=== PATIENT | female | born 1995 | race Caucasian/White ===

== ENCOUNTER → 2017-06-20 | Outpatient (CLI) | payer MEDICAID ==
[2017-06-20 19:00] LABS: BASO % 0.4 % (0.0-1.0); EOS # 0.1 K/mm3 (0.0-0.50); LARGE UNSTAINED CELL # 0.1 K/mm3 (0.0-0.4); LYMPH # 1.4 K/mm3 (1.5-6.5); LYMPH % 15.2 % (24.0-44.0); MEAN CORPUSCULAR HEMOGLOBIN 31.4 pg (27.0-33.0); MEAN CORPUSCULAR HGB CONC 33.5 g/dl (32.0-36.5); MEAN CORPUSCULAR VOLUME 93.8 fl (80.0-96.0); MONO # 0.5 K/mm3 (0.0-0.8); MONO % 5.3 % (0.0-5.0); NEUTROPHILS # 6.9 K/mm3 (1.8-7.7); NEUTROPHILS % 77.1 % (36.0-66.0); PLATELET COUNT, AUTOMATED 241 k/mm3 (150-450); RED CELL DISTRIBUTION WIDTH 12.6 % (11.5-14.5); WHITE BLOOD COUNT 8.9 K/mm3 (4.0-10.0)
[2017-06-21 09:34] LABS: HBsAg Prenatal NEGATIVE (NEGATIVE)
== END ==
LOC: M SMT 12:08
PROVIDERS: ATTEND Obstetrics & Gynecology
DX: Z34.82 Encounter for supervision of other normal pregnancy, second trimester (principal)

== ENCOUNTER → 2017-06-23 | Outpatient (CLI) | payer MEDICAID ==
--- NOTE | 2017-06-23 16:14 | REP ---
Obstetric ultrasound: There is a single intrauterine gestation. position is variable. There is movement and cardiac activity, the heart rate is 139 beats per minute. The placenta is posterior. There is no placenta previa or abruptio. Placenta demonstrates grade zero maturity. The amniotic fluid volume subjectively is normal. The cervix is 3.6 cm in diameter. By today's ultrasound the gestational age is 20 weeks 2 days with an DIDIER of 11/08/2017. By LMP and gestational age is 20 weeks 1 day. weight is 391 grams (0 pounds, 13 ounces). This is the 74th percentile for 20 weeks 1 day. The following anatomic structures are identified and are unremarkable: Intracranial lateral ventricles, choroid plexus, cerebellum, cisterna magna, cavum septum pellucidum, face, facial profile, lungs, four-chamber heart, cardiac right and left ventricular outflow tracts, diaphragm, stomach, cord insertion, three-vessel cord, bladder and upper lower extremities. Suboptimally demonstrated because of position are the kidneys and the spine. A followup study dedicated to these structures might be considered. Otherwise, there are no anomalies. Signed by Trent Becerra MD 06/23/2017 04:06 P
== END ==
LOC: M SMT 14:48
PROVIDERS: ATTEND Obstetrics & Gynecology
DX: Z34.82 Encounter for supervision of other normal pregnancy, second trimester (principal)

== ENCOUNTER → 2017-08-07 | Outpatient (CLI) | payer MEDICAID, OTHER ==
--- NOTE | 2017-08-07 14:48 | REP ---
OBSTETRIC SONOGRAPHY: HISTORY: Supervision of followup anatomy. Comparison study June 23, 2017. FINDINGS: Scanning through the gravid uterus demonstrates a viable single intrauterine gestation in a cephalic lie. motion is observed and heart rate is recorded at 147 beats per minute. An anterior grade 1 placenta is seen without evidence of previa. Amniotic fluid is subjectively normal. Closed cervical length is measured transabdominally at 6.0 cm. No extrauterine abnormality is observed. There has been appropriate interval growth. No anomaly is seen. The following anatomic structures are identified today and felt to be unremarkable: cranium, choroid plexus, cavum, cerebellum and posterior fossa, lungs, four-chamber heart with left ventricular outflow tract view, diaphragm, left-sided stomach, abdominal wall cord insertion, three-vessel umbilical cord, kidneys and bladder, spine, upper and lower extremities. Biometry Chart: BPD 6.7 cm = 26 weeks 6 days HC 24.3 cm = 26 weeks 3 days AC 22.5 cm = 26 weeks 6 days FL 4.9 cm = 26 weeks, 3 days HL 4.5 cm = 26 weeks 3 days CD 3.2 cm = 27 weeks 2 days HC/AC ratio normal 1.08 Cephalic index normal 0.77. Estimated weight 963 grams, 2 pounds 1 ounce, 43rd percentile for 26 weeks 4 days. IMPRESSION: Viable single intrauterine gestation at 26 weeks 1 day by today's composite sonographic criteria. Expected gestational age estimate based on prior sonography is 26 weeks 4 days. DIDIER by prior sonography November 09, 2017. anatomic survey is felt to be complete in conjunction with the prior study. Signed by Ishaan Mabry MD 08/07/2017 03:55 P
== END ==
LOC: M SMT 13:03
PROVIDERS: ATTEND Obstetrics & Gynecology
DX: Z34.82 Encounter for supervision of other normal pregnancy, second trimester (principal)

== ENCOUNTER → 2017-08-11 | Outpatient (CLI) | payer MEDICAID, OTHER ==
[2017-08-11 13:46] LABS: MEAN CORPUSCULAR HEMOGLOBIN 31.1 pg (27.0-33.0); MEAN CORPUSCULAR HGB CONC 33.5 g/dl (32.0-36.5); RED CELL DISTRIBUTION WIDTH 12.7 % (11.5-14.5); WHITE BLOOD COUNT 10.5 K/mm3 (4.0-10.0)
== END ==
LOC: M SMT 09:45
PROVIDERS: ATTEND Obstetrics & Gynecology
DX: Z34.82 Encounter for supervision of other normal pregnancy, second trimester (principal)

== ENCOUNTER → 2017-08-16 | Outpatient (REF) | payer OTHER | LOC: M LAB REF 11:36 | PROVIDERS: ATTEND Advanced Practice Midwife | DX: Z34.82 Encounter for supervision of other normal pregnancy, second trimester (principal) ==

== ENCOUNTER → 2017-10-16 | Outpatient (REF) | payer OTHER | LOC: M LAB REF 17:09 | PROVIDERS: ATTEND Advanced Practice Midwife | DX: Z34.83 Encounter for supervision of other normal pregnancy, third trimester (principal) ==

== ENCOUNTER 2017-11-07 05:04 | Inpatient (IN) | payer OTHER ==
[~2017-11-07] VITALS: Ht 162.6 cm; Wt 74.8 kg
[2017-11-07] VITALS (34 sets, daily range): BP systolic 97–157; BP diastolic 51–85
[2017-11-07] MEDS ORDERED: PRENTAB9 PO (05:24)
[2017-11-07] MEDS ORDERED: ZANTTAB9 PO (05:25)
[2017-11-07] MEDS ORDERED: BUTORPHANOL 2 MG/ML INJ (J0595) IV ONE (05:45)
[2017-11-07] MEDS ORDERED: PROMETHAZINE INJ 25 MG/ML VIAL (J2550) IV ONE (05:45)
[2017-11-07] MEDS ORDERED: ONDANSETRON 4MG/2ML VIAL (J2405) IV PRN ×3 (05:45→17:15)
--- NOTE | 2017-11-07 06:06 | HPE ---
DATE OF ADMISSION: 11/07/2017 Ирина is a 22-year-old 1 para 0 at 39 and 5/7 weeks gestation with EDC of 11/09/2017 based on last menstrual period and supported by a second trimester ultrasound. She presents to labor and delivery today with report of onset of uncomfortable contractions at approximately midnight that have progressively gotten closer together and more uncomfortable. She reports some scant bloody show. Denies leakage of fluid and the fetus has been active. care was initiated at [facility] in the second trimester. course complicated by late entry to care. OB HISTORY: Prima . OB LABS: Blood type B positive, antibody screen negative, Rubella immune, VDRL nonreactive. Urine culture no growth. Hepatitis B surface antigen negative. HIV negative. Hepatitis B antibody nonreactive. Gonorrhea and chlamydia negative. It was too late for genetic serum screening labs. Gestational diabetic screening normal at 106. Group B Streptococcus (GBS) is negative. PAST MEDICAL HISTORY: Noncontributory. SURGERIES: None. FAMILY HISTORY: Anxiety. SOCIAL HISTORY: The patient is single. She is with supportive persons. The father of baby is at bedside and appeared to be supportive. She is a smoker. Reports smoking about a pack per day. She denies alcohol and drug use during the . She has a history of marijuana use and alcohol use prior to the . She denies any sexually transmitted disease (STD) history and she denies history of abuse, physical, sexual and emotional. ALLERGIES: No known drug allergies. CURRENT MEDICATION: - vitamin - Zantac as needed OBJECTIVE: Temperature 97.6, pulse 87, respirations have not been recorded at this time. Her blood pressure is 131/73. She is alert and oriented times three. She is distressed, crying, vomiting and tense with her contractions. heart rate is 130 with moderate variability, positive accelerations, no decelerations observed. She is kit approximately every 2-4 minutes. Sterile vaginal exam performed by RN: 2 cm dilated, 80% effaced, -1 station, membranes are intact. Abdomen is gravid, cephalic presentation. Estimated weight 7-1/2 pounds. ASSESSMENT: Intrauterine at 39 and 5/7 weeks gestation. heart rate category 1, active labor. PLAN: Admit patient to labor and delivery. Out of bed ad leen. Clear liquid diet. Saline lock. At this time, the patient requests IV pain medication to cope with her labor. Stadol and Phenergan have been ordered. I do anticipate continued labor progress and spontaneous vaginal delivery. Will consider assisted rupture of membranes to augment her labor and IV Pitocin as needed.
[2017-11-07 06:10] LABS: MEAN CORPUSCULAR HEMOGLOBIN 29.1 pg (27.0-33.0); MEAN CORPUSCULAR HGB CONC 33.9 g/dl (32.0-36.5); MEAN CORPUSCULAR VOLUME 85.9 fl (80.0-96.0); PLATELET COUNT, AUTOMATED 182 10^3/uL (150-450); RED CELL DISTRIBUTION WIDTH 13.5 % (11.5-14.5); WHITE BLOOD COUNT 18.8 10^3/uL (4.0-10.0)
[2017-11-07] MEDS ORDERED: OXYTOCIN DRIP 30 UNITS in APPROPRIATE DILUENT 1 EA IV SCH (07:00)
[2017-11-07] MEDS: LR 1,000 ML IV SCH ×3 (07:03→13:10)
[2017-11-07] MEDS ORDERED: FENTANYL 2MCG/ML ROPIVACAINE 0.2% IN 0.9% NACL 200ML IVBAG As Ordered ONE (09:12)
[2017-11-07] MEDS ORDERED: ePHEDrine SULFATE 25 MG/5 ML(5MG/ML) SYRINGE IV PRN (10:45)
[2017-11-07] MEDS ORDERED: LACTATED RINGER'S 1000 ML IV PRN (10:45)
[2017-11-07] MEDS ORDERED: REFRIGERATOR IV KEYS XX PRN (10:45)
[2017-11-07] MEDS ORDERED: EPIDURAL COMMENT XX SCH (10:45)
[2017-11-07] MEDS ORDERED: EPIDURAL/PCA KEYS XX PRN (10:45)
[2017-11-07] MEDS ORDERED: diphenhydrAMINE INJ 50MG/ML VIAL (J1200) IV PRN (10:45)
[2017-11-07] MEDS ORDERED: NALOXONE INJ 0.4 MG/1 ML VIAL (J2310) IV PRN (10:45)
[2017-11-07] MEDS ORDERED: FENTANYL/ROPIVACAINE/NACL BAG 200 ML EPIDURAL SCH (10:45)
[2017-11-07] MEDS ORDERED: FAMOTIDINE 20 MG TAB PO ONE (12:15)
[2017-11-07] MEDS ORDERED: DOCUSATE SODIUM 100 MG CAP PO PRN (17:15)
[2017-11-07] MEDS ORDERED: MEASLES,MUMPS,RUBELLA VACCINE INJ (MMR-II) (90707) SC SCH (17:15)
[2017-11-07] MEDS ORDERED: OXYTOCIN DRIP 30 UNITS in APPROPRIATE DILUENT 1 EA IV ONE (17:15)
[2017-11-07] MEDS ORDERED: ACETAMINOPHEN 500 MG TAB PO PRN (17:15)
[2017-11-07] MEDS ORDERED: METHYLERGONOVINE MALEATE 0.2 MG TAB PO PRN (17:15)
[2017-11-07] MEDS ORDERED: RHOGAM 300 MCG (1500 IU) INJ (J2790) IM SCH (17:15)
[2017-11-07] MEDS ORDERED: DIBUCAINE 1% OINTMENT 30GM TOP PRN (17:15)
--- NOTE | 2017-11-07 19:38 | DN ---
DATE: 11/07/2017 PREDELIVERY DIAGNOSIS: Term , labor. POSTDELIVERY DIAGNOSIS: Delivered. PROCEDURE: Spontaneous vaginal delivery. BLACK OFF WORKER: Dr. Yousuf Hood ANESTHESIA: Epidural. ESTIMATED BLOOD LOSS: 300 mL. FINDINGS: 7 pound 5 ounce or 3320 gram male infant, scores 8 and 9. DELIVERY SUMMARY: After a 10-minute second stage, the patient had spontaneous delivery of a 7 pound 5 ounce male , scores of 8 and 9, under epidural anesthesia. There was no nuchal cord. The shoulders delivered with ease. The infant spontaneously and was handed to the mother. Cord was doubly clamped and cut. The placenta delivered spontaneously and appeared to be intact. She received IV Pitocin immediately after delivery of the placenta. There were no vaginal lacerations present. Sponge counts were correct.
[2017-11-08] MEDS: IBUPROFEN 800 MG TAB PO PRN ×3 (03:59→23:34)
[2017-11-08 05:37] VITALS: BP 107/53
[2017-11-08] MEDS: PRENATAL VITAMINS CHEWABLE TABLET PO SCH (09:43)
[2017-11-08 17:43] VITALS: BP 113/58
[2017-11-09 06:00] VITALS: BP 118/65
[2017-11-09] MEDS: PRENATAL VITAMINS CHEWABLE TABLET PO SCH (08:20)
[2017-11-09] MEDS: IBUPROFEN 800 MG TAB PO PRN (08:21)
[2017-11-09] MEDS ORDERED: ACET50TA PO (09:31)
[2017-11-09] MEDS ORDERED: IBUP-1114 PO (09:32)
== END 2017-11-09 11:58 | disposition home or self-care (01) | DRG 560 ==
LOC: M LDO 05:04 → M LDI 05:31 → M OBS 18:25
PROVIDERS: ADMIT Advanced Practice Midwife; ATTEND Advanced Practice Midwife
PROC: 10E0XZZ Delivery of Products of Conception, External Approach (ICD-10-PCS; principal; 2017-11-07)
DX: O80 Encounter for full-term uncomplicated delivery (principal); Z37.0 Single live birth; Z3A.39 39 weeks gestation of pregnancy

== ENCOUNTER → 2018-08-31 | Outpatient (CLI) | payer OTHER ==
[2018-08-31 13:49] LABS: BASO # 0.1 10^3/uL (0.0-0.2); BASO % 0.7 % (0.0-1.0); EOS # 0.2 10^3/uL (0.0-0.50); EOS % 1.4 % (0.0-3.0); HEMATOCRIT 42.3 % (36.0-47.0); HEMOGLOBIN 14.6 g/dl (12.0-15.5); IMMATURE GRANULOCYTE % 0.3 % (0-3.0); LYMPH # 2.6 10^3/uL (1.5-6.5); LYMPH % 24.5 % (24.0-44.0); MEAN CORPUSCULAR HGB CONC 34.5 g/dl (32.0-36.5); MEAN CORPUSCULAR VOLUME 86.9 fl (80.0-96.0); MONO # 0.9 10^3/uL (0.0-0.8); MONO % 8.2 % (0.0-5.0); NEUTROPHILS # 6.8 10^3/uL (1.8-7.7); NEUTROPHILS % 64.9 % (36.0-66.0); PLATELET COUNT, AUTOMATED 234 10^3/uL (150-450); RED BLOOD COUNT 4.87 10^6/uL (4.00-5.40); RED CELL DISTRIBUTION WIDTH 12.1 % (11.5-14.5); WHITE BLOOD COUNT 10.5 10^3/uL (4.0-10.0)
[2018-08-31 14:56] LABS: HBsAg Prenatal NEGATIVE (NEGATIVE); HIV 1&2 SCREEN CENTAUR NEGATIVE (NEGATIVE); RUBELLA IgG QUALITATIVE IMMUNE (IMMUNE)
[2018-08-31 14:56] LABS: HEPATITIS C VIRUS ABY INDEX < 0.0 INDEX (<0.8)
[2018-08-31 15:37] LABS: CHLAMYDIA DNA AMPLIFICATION NEGATIVE (NEGATIVE); GC DNA AMPLIFICATION NEGATIVE (NEGATIVE)
== END ==
LOC: M SMT 10:19
DX: Z34.81 Encounter for supervision of other normal pregnancy, first trimester (principal); Z36.89 Encounter for other specified antenatal screening; Z3A.09 9 weeks gestation of pregnancy
CPT/HCPCS: 86762

== ENCOUNTER → 2018-09-28 | Outpatient (CLI) | payer OTHER | LOC: M SMT 12:48 | DX: Z36.89 Encounter for other specified antenatal screening (principal); Z3A.17 17 weeks gestation of pregnancy | CPT/HCPCS: 76811 ==

== ENCOUNTER → 2019-01-04 | Outpatient (CLI) | payer OTHER ==
[~2019-01-04] MED LIST: IBUP-1114 PO; MAPA500T2 PO; PRENTAB9 PO; ZANTTAB9 PO
[2019-01-04 13:16] LABS: BASO % 0.3 % (0.0-1.0); EOS # 0.1 10^3/uL (0.0-0.50); EOS % 1.4 % (0.0-3.0); HEMATOCRIT 36.5 % (36.0-47.0); HEMOGLOBIN 12.3 g/dl (12.0-15.5); LYMPH # 1.8 10^3/uL (1.5-6.5); LYMPH % 21.3 % (24.0-44.0); MEAN CORPUSCULAR HEMOGLOBIN 29.8 pg (27.0-33.0); MEAN CORPUSCULAR HGB CONC 33.7 g/dl (32.0-36.5); MEAN CORPUSCULAR VOLUME 88.4 fl (80.0-96.0); MONO # 0.8 10^3/uL (0.0-0.8); MONO % 9.5 % (0.0-5.0); NEUTROPHILS # 5.8 10^3/uL (1.8-7.7); NEUTROPHILS % 67.2 % (36.0-66.0); PLATELET COUNT, AUTOMATED 205 10^3/uL (150-450); RED BLOOD COUNT 4.13 10^6/uL (4.00-5.40); WHITE BLOOD COUNT 8.6 10^3/uL (4.0-10.0)
== END ==
LOC: M SMT 09:47
PROVIDERS: ATTEND Specialist
DX: Z34.82 Encounter for supervision of other normal pregnancy, second trimester (principal)

== ENCOUNTER → 2019-01-29 | Outpatient (CLI) | payer OTHER ==
[2019-01-29 13:57] LABS: ALBUMIN 2.8 GM/DL (3.2-5.2); BILIRUBIN,DIRECT 0.2 MG/DL (0.0-0.2); BILIRUBIN,TOTAL 0.3 MG/DL (0.2-1.0); TOTAL PROTEIN 6.6 GM/DL (6.4-8.2)
== END ==
LOC: M SMT 11:16
PROVIDERS: ATTEND Specialist
DX: O26.613 Liver and biliary tract disorders in pregnancy, third trimester (principal)

== ENCOUNTER → 2019-02-05 | Outpatient (REF) | payer OTHER ==
[~2019-02-05] MED LIST changes: +ACET-683 PO; +IBUP80TA PO
== END ==
LOC: M LAB REF 13:04
PROVIDERS: ATTEND Specialist
DX: Z34.83 Encounter for supervision of other normal pregnancy, third trimester (principal); Z3A.36 36 weeks gestation of pregnancy; Z36.85 Encounter for antenatal screening for Streptococcus B

== ENCOUNTER 2019-02-09 07:06 | Inpatient (IN) | payer OTHER ==
[~2019-02-09] VITALS: Ht 162.6 cm; Wt 81.1 kg
[2019-02-09] VITALS (15 sets, daily range): BP systolic 97–147; BP diastolic 55–88
[~2019-02-09 07:06] MED LIST changes: -ACET-683 PO; -IBUP80TA PO
[2019-02-09] MEDS ORDERED: LACTATED RINGER'S 1000 ML IV STA (07:24)
[2019-02-09] MEDS ORDERED: miSOPROStol 50 MCG 1/2 TAB (S0191) PO SCH (08:00)
[2019-02-09 08:20] LABS: HEMATOCRIT 35.2 % (36.0-47.0); HEMOGLOBIN 11.7 g/dl (12.0-15.5); MEAN CORPUSCULAR HEMOGLOBIN 28.3 pg (27.0-33.0); MEAN CORPUSCULAR HGB CONC 33.2 g/dl (32.0-36.5); PLATELET COUNT, AUTOMATED 160 10^3/uL (150-450); RED BLOOD COUNT 4.14 10^6/uL (4.00-5.40); WHITE BLOOD COUNT 8.6 10^3/uL (4.0-10.0)
[2019-02-09 08:47] LABS: ALT/SGPT 24 U/L (12-78); BILIRUBIN,TOTAL 0.2 MG/DL (0.2-1.0); GLOMERULAR FILTRATION RATE > 60.0 (>60); LDH LACTATE DEHYDROGENASE 162 U/L (84-246); URIC ACID 3.5 MG/DL (2.6-6.0)
[2019-02-09] MEDS ORDERED: OXYTOCIN DRIP 30 UNITS in APPROPRIATE DILUENT 1 EA IV SCH (12:45)
--- NOTE | 2019-02-09 12:46 | NUR ---
L&D H&P HPI: 23 year old at 37+0 weeks estimated gestation. Expected date of confinement: 03/02/2019. dated by her LMP, consistent with first trimester ultrasound. Presents today for an induction of labor secondary to a diagnosis of cholestasis of . Denies vaginal bleeding, loss of fluid, or uterine contractions. Reports regular movement. course complicated by cholestasis of , tobacco use during . labs: Blood type B+, antibody screen negative, rubella immune, VDRL nonreactive , hepatitis B surface antigen negative, HIV negative, hepatitis C antibody negative, GC/CT negative, aneuploidy/maternal serum screening: Not done, 1 hour glucose challenge test: 61, negative GBS 01/29/2019: AST 28 ALT 92 bile acids 18.7 Vaccinations: Tdap 02/05/2019 Flu vaccine 10/09/2018 Radiology/OB US: no anomalies or placental abnormalities detected. History Past medical history: None Surgical history:. None Medications:. vitamins Allergies: NKDA [employer] history:. No dysplasia/STI/G HSV OB history:. G1, October 2017, 39+0 weeks' , 7 lbs. 5 oz., uncomplicated. Social history: No alcohol or drug use. Tobacco use during Family history: Anxiety Objective Vitals: Normotensive, normal heart rate, afebrile Heart: Regular rate and rhythm. No murmurs, rubs or gallops. Lungs: Clear to auscultation bilaterally. No wheezes, crackles, rales or rhonchi. Abdomen: Uterine fundal height consistent with dates. No guarding or rebound tenderness. Extremities: No clubbing, cyanosis or edema. Normal deep tendon reflexes. Sterile vaginal exam: 1 cm, 50 %effacement, -3 station, cephalic, intact External monitoring: heart rate category 1 Tocodynamometer: contractions occurring intermittently Assessment/Plan 23 year old at 37+0 weeks gestation. Diagnosis: Cholestasis of . Reassuring and maternal status. -Admit to labor and delivery with routine labs and orders -External monitoring and tocodynamometer -Pediatrics and anesthesia consultations as needed. -Start with cervical ripening via misoprostol followed by Cook balloon / Pitocin Dr. Saad Burciaga, DO, FACOG
[2019-02-09] MEDS ORDERED: PROMETHAZINE INJ 25 MG/ML VIAL (J2550) IM ONE (15:30)
[2019-02-09] MEDS ORDERED: BUTORPHANOL 2 MG/ML INJ (J0595) IV ONE (15:30)
[2019-02-09] MEDS ORDERED: PROMETHAZINE INJ 25 MG/ML VIAL (J2550) IV ONE (15:45)
[2019-02-09] MEDS: LR 1,000 ML IV SCH ×2 (17:00→22:40)
--- NOTE | 2019-02-09 19:57 | NUR ---
Labor progress note Subjective: Patient starting to feel more uncomfortable with contractions. Contractions are occurring more frequently. Denies any loss of fluid or vaginal bleeding. No complaints of headache, visual changes, nausea, vomiting, shortness of breath or chest pain. Cook balloon has not spontaneously fallen out of the vagina. Patient has received Stadol and Phenergan IV for pain control. Requesting epidural. Objective: Vitals: Normotensive, normal heart rate, afebrile Sterile vaginal exam: 4-5 cm, 50% effacement, -3 station, cephalic, intact membranes. External monitoring: Category 1 Tocodynamometer:. Contractions every 2-3 minutes, Pitocin at 6 mU/m Assessment / Plan: Latent labor, approaching active phase of labor. Reassuring maternal and status. -Continue with IV Pitocin per protocol. -Repeat sterile vaginal exam in approximately 2-4 hours or sooner as needed -Consider AROM if unchanged Dr. Saad Burciaga D.O., F.A.C.O.G
[2019-02-09] MEDS ORDERED: FENTANYL 2MCG/ML ROPIVACAINE 0.2% IN 0.9% NACL 100ML IVBAG As Ordered ONE (20:02)
[2019-02-09] MEDS ORDERED: FENTANYL/ROPIVACAINE/NACL BAG 100 ML EPIDURAL SCH (20:45)
[2019-02-09] MEDS ORDERED: LACTATED RINGER'S 1000 ML IV PRN (20:45)
[2019-02-09] MEDS ORDERED: ONDANSETRON 4MG/2ML VIAL (J2405) IV PRN (20:45)
[2019-02-09] MEDS ORDERED: ePHEDrine SULFATE 25 MG/5 ML(5MG/ML) SYRINGE IV PRN (20:45)
[2019-02-09] MEDS ORDERED: NALOXONE INJ 0.4 MG/1 ML VIAL (J2310) IV PRN (20:45)
[2019-02-09] MEDS ORDERED: REFRIGERATOR IV KEYS XX PRN (20:45)
[2019-02-09] MEDS ORDERED: diphenhydrAMINE INJ 50MG/ML VIAL (J1200) IV PRN (20:45)
[2019-02-09] MEDS ORDERED: EPIDURAL/PCA KEYS XX PRN (20:45)
[2019-02-09] MEDS ORDERED: EPIDURAL COMMENT XX SCH (20:45)
--- NOTE | 2019-02-09 22:39 | NUR ---
Labor progress note Subjective: Patient comfortable with epidural. Denies any loss of fluid or vaginal bleeding. No complaints of headache, visual changes, nausea, vomiting, shortness of breath or chest pain. Objective: Vitals: Normotensive, normal heart rate, afebrile Sterile vaginal exam: 5 cm, 70% effacement, -2 station, cephalic AROM , clear External monitoring: Category 1 Tocodynamometer:. Contractions every 3-5 minutes, Pitocin at 8 mU/m Assessment / Plan: Latent labor, approaching active phase of labor. Reassuring maternal and status. -Continue with IV Pitocin per protocol. -Repeat sterile vaginal exam in approximately 2-4 hours or sooner as needed Anna Marie Burciaga,
[2019-02-10] MEDS ORDERED: OXYTOCIN DRIP 30 UNITS in APPROPRIATE DILUENT 1 EA IV SCH (03:22)
[2019-02-10] MEDS ORDERED: LR 1,000 ML IV SCH (03:22)
--- NOTE | 2019-02-10 03:27 | NUR ---
Delivery note Spontaneous vaginal delivery Estimated gestational age at delivery: 37+1 weeks The active phase and second stage of labor progressed in normal fashion with epidural anesthesia. Patient received Pitocin labor augmentation. heart rate category 1 throughout labor. The head delivered left occiput anterior and restituted left occiput transverse. No nuchal cord was noted. The anterior shoulder delivered with gentle downward guidance and the remainder of the body delivered with ease. Cord clamping was delayed for approximately 1 minute after delivery. After doubly clamping the cord, I allowed the FOB to cut the cord. The was placed on the patient's chest for immediate bonding. [place] data: Apgars 7 and 9. weight 3210 grams 7 pounds, 1 ounces. Time of delivery: 0307. Sex: Male. The third stage of labor was actively managed with a bolus of IV Pitocin (30 units in 500 mL of normal saline). The placenta delivered completely intact with no missing cotyledons at 0311. A three-vessel cord with a central insertion was noted. After delivery of the placenta, the uterine fundus was approximately 2 cm below the umbilicus and firm. IV Pitocin was continued to maintain uterine tone. A normal, low level of uterine bleeding was noted. The cervix, vagina, vulva and perineum were inspected for lacerations. No laceration was noted. Excellent hemostasis was noted. Estimated blood loss: 200ml All sponges, needles, and instruments were accounted for per [employer] department protocol. Saad Burciaga D.O., F.Trey.C.OLashae.
[2019-02-10] MEDS ORDERED: DOCUSATE SODIUM 100 MG CAP PO PRN (03:30)
[2019-02-10] MEDS ORDERED: METHYLERGONOVINE MALEATE 0.2 MG TAB PO PRN (03:30)
[2019-02-10] MEDS ORDERED: ONDANSETRON 4MG/2ML VIAL (J2405) IV PRN (03:30)
[2019-02-10] MEDS ORDERED: DIBUCAINE 1% OINTMENT 30GM TOP PRN (03:30)
[2019-02-10] MEDS ORDERED: RHOGAM 300 MCG (1500 IU) INJ (J2790) IM SCH (03:30)
[2019-02-10] MEDS ORDERED: PROMETHAZINE 25 MG TAB PO PRN (03:30)
[2019-02-10] MEDS ORDERED: MEASLES,MUMPS,RUBELLA VACCINE INJ (MMR-II) (90707) SC SCH (03:30)
[2019-02-10] MEDS ORDERED: IBUP80TA PO (03:49)
[2019-02-10] MEDS ORDERED: ACET-683 PO (03:49)
[2019-02-10 05:45] VITALS: BP 123/57
[2019-02-10] MEDS: PRENATAL VITAMINS CHEWABLE TABLET PO SCH (07:49)
[2019-02-10] MEDS: ACETAMINOPHEN 500 MG TAB PO PRN ×2 (10:06→18:39)
[2019-02-10] MEDS: IBUPROFEN 800 MG TAB PO PRN (13:30)
[2019-02-10 17:52] VITALS: BP 121/69
[2019-02-11] MEDS: ACETAMINOPHEN 500 MG TAB PO PRN (03:45)
[2019-02-11 06:00] VITALS: BP 108/62
[2019-02-11] MEDS: PRENATAL VITAMINS CHEWABLE TABLET PO SCH (07:39)
[2019-02-11] MEDS: IBUPROFEN 800 MG TAB PO PRN (10:23)
== END 2019-02-11 11:55 | disposition home or self-care (01) | DRG 560 ==
LOC: M LDI 07:06 → M OBS 02-10 05:21
PROVIDERS: ADMIT Obstetrics & Gynecology; ATTEND Obstetrics & Gynecology
PROC: 10E0XZZ Delivery of Products of Conception, External Approach (ICD-10-PCS; principal; 2019-02-10)
DX: O99.334 Smoking (tobacco) complicating childbirth (principal); K83.1 Obstruction of bile duct; F17.200 Nicotine dependence, unspecified, uncomplicated; Z37.0 Single live birth; Z3A.37 37 weeks gestation of pregnancy

== ENCOUNTER → 2019-12-17 | Outpatient (REF) | payer OTHER ==
[~2019-12-17] MED LIST changes: +ACET-683 PO; +IBUP80TA PO
== END ==
LOC: M LAB REF 12:36
PROVIDERS: ATTEND Physician Assistant
DX: N39.0 Urinary tract infection, site not specified (principal)

== ENCOUNTER → 2022-10-13 | Outpatient (REF) | payer OTHER | LOC: M LAB REF 16:15 | PROVIDERS: ATTEND Pediatrics | DX: L02.91 Cutaneous abscess, unspecified (principal) ==

== ENCOUNTER → 2025-02-04 | Outpatient (CLI) | payer OTHER, SELFPAY ==
[2025-02-04 19:59] LABS: HEMOGLOBIN 14.3 g/dl (12.0-15.5); MEAN CORPUSCULAR HEMOGLOBIN 30.2 pg (27.0-33.0); MEAN CORPUSCULAR VOLUME 88.6 fl (80.0-96.0); PLATELET COUNT, AUTOMATED 258 10^3/uL (150-450); RED BLOOD COUNT 4.74 10^6/uL (4.00-5.40); WHITE BLOOD COUNT 10.1 10^3/uL (4.0-10.0)
[2025-02-04 20:44] LABS: HIV 1&2 SCREEN NEGATIVE (NEGATIVE)
[2025-02-04 20:50] LABS: HEPATITIS C VIRUS ABY INDEX 0.05 INDEX (<0.8)
[2025-02-04 21:19] LABS: GC DNA AMPLIFICATION NEGATIVE (NEGATIVE)
== END ==
LOC: M PLALAB 14:21
PROVIDERS: ATTEND Nurse Practitioner Family
DX: Z34.80 Encounter for supervision of other normal pregnancy, unspecified trimester (principal)

== ENCOUNTER → 2025-03-04 | Outpatient (REF) | payer BC | LOC: M PLALAB 11:04 | PROVIDERS: ATTEND Nurse Practitioner Family | DX: Z11.3 Encounter for screening for infections with a predominantly sexual mode of transmission (principal); Z53.8 Procedure and treatment not carried out for other reasons ==

== ENCOUNTER → 2025-06-02 | Outpatient (CLI) | payer MEDICAID, SELFPAY ==
[2025-06-02 15:16] LABS: Trichomonas vaginalis (AMP) POSITIVE (NEGATIVE)
[2025-06-02 15:53] LABS: GC DNA AMPLIFICATION NEGATIVE (NEGATIVE)
[2025-06-02 16:19] LABS: PLATELET COUNT, AUTOMATED 253 10^3/uL (150-450)
[2025-06-02 16:42] LABS: GLUCOSE CHALLENGE TEST 1 HOUR 71 MG/DL (LESS THAN 140)
[2025-06-02 17:11] LABS: HIV 1&2 SCREEN NEGATIVE (NEGATIVE)
[2025-06-02 17:19] LABS: HEPATITIS C VIRUS ABY INDEX 0.16 INDEX (<0.8)
== END ==
LOC: M PLALAB 11:32
PROVIDERS: ATTEND Obstetrics & Gynecology
DX: O09.30 Supervision of pregnancy with insufficient antenatal care, unspecified trimester (principal); Z3A.00 Weeks of gestation of pregnancy not specified

== ENCOUNTER → 2025-07-23 | Outpatient (REF) | payer MEDICAID, OTHER ==
[2025-07-23 16:46] LABS: Trichomonas vaginalis (AMP) NOT DETECTED (NEGATIVE)
[2025-07-23 17:10] LABS: GC DNA AMPLIFICATION NEGATIVE (NEGATIVE)
== END ==
LOC: M SFHCWAGY 14:55
PROVIDERS: ATTEND Obstetrics & Gynecology
DX: Z34.93 Encounter for supervision of normal pregnancy, unspecified, third trimester (principal)

== ENCOUNTER → 2025-07-31 | Outpatient (REF) | payer MEDICAID, OTHER | LOC: M SFHCWAGY 15:14 | PROVIDERS: ATTEND Student in an Organized Health Care Education/Training Program | DX: Z34.80 Encounter for supervision of other normal pregnancy, unspecified trimester (principal) ==